=== PATIENT | female | born 1985 | race Caucasian/White ===

== ENCOUNTER 2017-08-08 15:50 | Outpatient (CLI) | payer MEDICAID ==
[2017-08-08 16:46] LABS: APPEARANCE,URINE CLEAR; BILIRUBIN,URINE NEGATIVE (NEGATIVE); GLUCOSE, URINE NEGATIVE (NEGATIVE); KETONES,URINE NEGATIVE (NEGATIVE); LEUKOCYTE ESTERASE,URINE NEGATIVE (NEGATIVE); NITRITE,URINE NEGATIVE (NEGATIVE); PROTEIN,URINE NEGATIVE (NEGATIVE); URINE SPECIFIC GRAVITY 1.019; UROBILINOGEN,URINE NEGATIVE mg/dL (<2.0)
--- NOTE | 2017-08-08 17:00 | Non Stress Test Report ---
Non Stress Test Datetime Report Generated by CPN: 08/08/2017 17:00 DEMOGRAPHIC EGA NST: 33.0 INDICATION Indication for Study: Ordered by Provider Indication for Study (NST) Other: uc's MONITORING Monitor Explained: Monitor Explained; Test Explained; Patient Verbalized Understanding Time on Monitor: 08/08/2017 16:12 Time off Monitor: 08/08/2017 16:50 NST Duration: 38 NST INTERVENTIONS NST Interventions: Other NST Interventions Other: popsicle Physician Notified NST: Dr Phipps BABY A: [id number] BABY A Movement : Present Contraction Frequency : irregular FHR Baseline : 140 Accelerations : 15X15 Decelerations : None Variability : Moderate 6-25bpm NST Review: Meets Criteria for Reactive NST NST Review and Verified By : Gianfranco Fonseca RN NST Results: Reactive NST REPORT Report Trigger: Send Report
[2017-08-08 17:12] LABS: URINE BARBITURATES SCREEN NEGATIVE; URINE METHADONE SCREEN NEGATIVE; URINE OPIATES LOW NEGATIVE; URINE PHENCYCLIDINE SCREEN NEGATIVE
== END 2017-08-08 16:57 | disposition home or self-care (01) ==
LOC: LC 15:50
PROVIDERS: ATTEND Obstetrics & Gynecology
DX: O47.03 False labor before 37 completed weeks of gestation, third trimester (principal); Z3A.33 33 weeks gestation of pregnancy
CPT/HCPCS: 59025; 80307; 81001

== ENCOUNTER 2017-09-18 23:31 | Outpatient (CLI) | payer MEDICAID ==
[2017-09-19 00:11] LABS: APPEARANCE,URINE CLOUDY; BILIRUBIN,URINE NEGATIVE (NEGATIVE); GLUCOSE, URINE NEGATIVE (NEGATIVE); KETONES,URINE NEGATIVE (NEGATIVE); LEUKOCYTE ESTERASE,URINE TRACE (NEGATIVE); NITRITE,URINE NEGATIVE (NEGATIVE); PROTEIN,URINE 30 mg/dL (NEGATIVE); URINE SPECIFIC GRAVITY 1.019
[2017-09-19 00:26] LABS: URINE BARBITURATES SCREEN NEGATIVE; URINE METHADONE SCREEN NEGATIVE; URINE OPIATES LOW NEGATIVE; URINE PHENCYCLIDINE SCREEN NEGATIVE
--- NOTE | 2017-09-23 13:42 | Non Stress Test Report ---
Non Stress Test Datetime Report Generated by CPN: 09/23/2017 13:42 DEMOGRAPHIC EGA NST: 39.0 INDICATION Indication for Study: Ordered by Provider URINE RESULTS Urine Protein, NST: Positive Urine Ketones - NST: Negative Urine Glucose - NST: Negative Urine Blood - NST: Negative MONITORING Monitor Explained: Monitor Explained; Test Explained; Patient Verbalized Understanding Time on Monitor: 09/19/2017 00:08 Time off Monitor: 09/19/2017 00:43 NST Duration: 35 NST INTERVENTIONS NST Interventions: PO Hydration; Reposition Patient Physician Notified NST: Dr. Sunshine BABY A: [id number] BABY A Movement : Present Contraction Frequency : Occasional FHR Baseline : 135 Accelerations : 15X15 Decelerations : None Variability : Moderate 6-25bpm NST Review: Meets Criteria for Reactive NST NST Review and Verified By : Mason Snider RN NST Results: Reactive NST REPORT Report Trigger: Send Report
== END 2017-09-19 01:37 | disposition home or self-care (01) ==
LOC: LC 23:31 → EDBD 23:31 → LC 09-19 01:37
PROVIDERS: ATTEND Student in an Organized Health Care Education/Training Program
PROC: 4A1HXCZ Monitoring of Products of Conception, Cardiac Rate, External Approach (ICD-10-PCS; principal; 2017-09-18)
DX: O47.1 False labor at or after 37 completed weeks of gestation (principal); Z3A.39 39 weeks gestation of pregnancy
CPT/HCPCS: 59025; 80307; 81005

== ENCOUNTER 2018-10-22 12:02 | Emergency (ER) | payer MEDICAID ==
[2018-10-22 12:08] VITALS: BP 129/77
[2018-10-22] MEDS ORDERED: NORMAL SALINE 1000 ML 1,000 ML IV ONE (12:19)
--- NOTE | 2018-10-22 12:19 | ER Document Report ---
ED Medical Screen (RME) - General Chief Complaint: OB Problem (<20wks) Stated Complaint: VAGINAL BLEEDING, ABDOMINAL PAIN Time Seen by Provider: 10/22/18 12:17 Notes: 33 years old female with G 10 P5, presents with vaginal bleeding since this morning. She is 12 weeks . TRAVEL OUTSIDE OF THE [place] IN LAST 30 DAYS: No - Related Data Allergies/Adverse Reactions: No Known Allergies Allergy (Verified 10/22/18 12:04) Past Medical History - Social History Chew tobacco use (# tins/day): No Frequency of alcohol use: None Drug Abuse: None Renal/ Medical History: Denies: Hx Peritoneal Dialysis - Immunizations History of Influenza Vaccine for 08/2017 - 01/2018 Season: No Physical Exam - Vital signs Vitals: Temp Pulse Resp BP Pulse Ox 98.8 F 120 H 16 129/77 H 96 10/22/18 12:06 10/22/18 12:06 10/22/18 12:06 10/22/18 12:06 10/22/18 12:06 Course - Vital Signs Vital signs: Temp Pulse Resp BP Pulse Ox 98.8 F 120 H 16 129/77 H 96 10/22/18 12:06 10/22/18 12:06 10/22/18 12:06 10/22/18 12:06 10/22/18 12:06 Doctor's Discharge - Discharge Referrals: CAITLIN GUTIERREZ MD [Primary Care Provider] - Follow up as needed
[2018-10-22 12:59] LABS: ABSOLUTE EOSINOPHILS # (AUTO) 0.1 10^3/uL (0.0-0.6); ABSOLUTE LYMPHOCYTES (AUTO) 2.1 10^3/uL (0.5-4.7); ABSOLUTE MONOCYTES (AUTO) 0.5 10^3/uL (0.1-1.4); BASOPHILS % (AUTO) 0.3 % (0-2); EOSINOPHILS % (AUTO) 1.3 % (0-6); HEMATOCRIT 38.8 % (36.0-47.0); HEMOGLOBIN 13.9 g/dL (12.0-15.5); LYMPHOCYTES % (AUTO) 21.9 % (13-45); MEAN CORPUSCULAR HEMOGLOBIN 31.4 pg (27.0-33.4); MEAN CORPUSCULAR HGB CONC 35.9 g/dL (32.0-36.0); MEAN CORPUSCULAR VOLUME 88 fl (80-97); MONOCYTES % (AUTO) 4.8 % (3-13); PLATELET COUNT 220 10^3/uL (150-450); RED BLOOD COUNT 4.43 10^6/uL (3.72-5.28); RED CELL DISTRIBUTION WIDTH 12.3 % (11.5-14.0); SEGMENTED NEUTROPHILS % (AUTO) 71.7 % (42-78); TOTAL CELLS COUNTED % (AUTO) 100 %; WHITE BLOOD COUNT 9.8 10^3/uL (4.0-10.5)
[2018-10-22 13:06] LABS: APPEARANCE,URINE CLOUDY; BILIRUBIN,URINE NEGATIVE (NEGATIVE); COLOR,URINE YELLOW; GLUCOSE, URINE NEGATIVE (NEGATIVE); KETONES,URINE NEGATIVE (NEGATIVE); LEUKOCYTE ESTERASE,URINE MODERATE (NEGATIVE); NITRITE,URINE NEGATIVE (NEGATIVE); PROTEIN,URINE NEGATIVE (NEGATIVE); URINE SPECIFIC GRAVITY 1.023; UROBILINOGEN,URINE NEGATIVE mg/dL (<2.0)
--- NOTE | 2018-10-22 14:13 | RADIOLOGY REPORT (SQ) ---
EXAM DESCRIPTION: U/S 1TRIMESTER/1GEST W/DOPPLER COMPLETED DATE/TIME: 10/22/2018 1:56 pm REASON FOR STUDY: and vaginal bleeding COMPARISON: None. TECHNIQUE: Transabdominal static and realtime grayscale images acquired of the pelvis. Additional se lected spectral and color Doppler images recorded. All images stored on PACs. bHCG: Not applicable. CLINICAL DATES: Unknown LIMITATIONS: None. FINDINGS: FETUS: Single Living intrauterine . ULTRASOUND EGA: 13 weeks 2 days ULTRASOUND MARIE: 04/27/2019 EFW: Not applicable less than 20 weeks. CRL: 7.2 cm FHR: 160 beats per minute. SURVEY: Too early to assess. AMNIOTIC FLUID: Adequate amount. PLACENTA: Not yet developed due to early gestation. SUBCHORIONIC BLEED: No SIZE OF BLEED: Not applicable. UTERUS: No masses or anomalies. 11.2 x 10.4 x 12.5 cm. CERVICAL LENGTH: 4.3 cm. Closed. RIGHT ADNEXA: Normal ovary with normal vascular flow. 2.8 x 2.1 x 1.4 cm. No adnexal free fluid. No adnexal masses. LEFT ADNEXA: Normal ovary with normal vascular flow. 2.5 x 2.9 x 1.3 cm. No adnexal free fluid. No adnexal masses. FREE FLUID: None. OTHER: No other significant finding. IMPRESSION: LIVING INTRAUTERINE . EGA 13 weeks 2 days Trimester of : Second. TECHNICAL DOCUMENTATION: JOB ID: [id number] [employer]- All Rights Reserved Reading location - IP/workstation name: [email or web address]
--- NOTE | 2018-10-22 14:45 | ER Document Report ---
ED GI/ - General Chief Complaint: OB Problem (<20wks) Stated Complaint: VAGINAL BLEEDING, ABDOMINAL PAIN Time Seen by Provider: 10/22/18 12:17 Mode of Arrival: Ambulatory Information source: Patient Notes: 33-year-old female presents to ED for complaint of vaginal cramping yesterday and vaginal bleeding this morning. She states she is about 14-15 weeks 10 para 5. She is alert and oriented rest she is regular nonlabored speaking in full sentences walking with a even steady gait. She states she has no other problems at this time just the vaginal bleeding and cramping. TRAVEL OUTSIDE OF THE [place] IN LAST 30 DAYS: No - HPI Patient complains to provider of: Pelvic pain, , Vaginal bleeding Onset: Yesterday Timing/Duration: Intermittent Quality of pain: Cramping Severity at maximum: Moderate Severity in ED: Moderate Pain Level: 2 Location: Pelvis Vaginal bleeding (Compared to normal period): Web Architect : 10 Para: 15 OB ultrasound done: Yes Associated symptoms: Other - Pain and vaginal bleeding Exacerbated by: Denies Relieved by: Denies Similar symptoms previously: No Recently seen / treated by doctor: Yes - Related Data Allergies/Adverse Reactions: No Known Allergies Allergy (Verified 10/22/18 12:04) Past Medical History - General Information source: Patient - Social History Smoking Status: Current Every Day Smoker Cigarette use (# per day): Yes Chew tobacco use (# tins/day): No Smoking Education Provided: Yes - 4 minutes Frequency of alcohol use: None Drug Abuse: None Lives with: Family Family History: Reviewed & Not Pertinent Patient has suicidal ideation: No Patient has homicidal ideation: No - Past Medical History Cardiac Medical History: Reports: None Pulmonary Medical History: Reports: None EENT Medical History: Reports: None Neurological Medical History: Reports: None Endocrine Medical History: Reports: None Renal/ Medical History: Reports: Hx Ectopic Malignancy Medical History: Reports: None GI Medical History: Reports: None Musculoskeletal Medical History: Reports None Skin Medical History: Reports None Psychiatric Medical History: Reports: None Traumatic Medical History: Reports: None Infectious Medical History: Reports: None Past Surgical History: Reports: Hx Gynecologic Surgery - Laparoscopic for ectopic pregnancies - Immunizations Immunizations up to date: Yes Review of Systems - Review of Systems Notes: REVIEW OF SYSTEMS: CONSTITUTIONAL : Denies fever, chills, or sweats. Denies recent illness. EENT: Denies eye, ear, throat, or mouth pain or symptoms. Denies nasal or sinus congestion or discharge. Denies throat, tongue, or mouth swelling or difficulty swallowing. CARDIOVASCULAR: Denies chest pain. Denies palpitations or racing or irregular heart beat. Denies ankle edema. RESPIRATORY: Denies cough, cold, or chest congestion. Denies shortness of breath, difficulty breathing, or wheezing. GASTROINTESTINAL: Denies abdominal pain or distention. Denies nausea, vomiting , or diarrhea. Denies blood in vomitus, stools, or per rectum. Denies black, tarry stools. Denies constipation. GENITOURINARY: Denies difficulty urinating, painful urination, burning, frequency, blood in urine, or discharge. FEMALE GENITOURINARY: Patient states she is about 14-15 weeks started cramping last night with vaginal bleeding. She states she is 10 para 5 but only 1 child living a home. She states her ex- has the rest of the children. MUSCULOSKELETAL: Denies back or neck pain or stiffness. Denies joint pain or swelling. SKIN: Denies rash, lesions or sores. HEMATOLOGIC : Denies easy bruising or bleeding. LYMPHATIC: Denies swollen, enlarged glands. NEUROLOGICAL: Denies confusion or altered mental status. Denies passing out or loss of consciousness. Denies dizziness or lightheadedness. Denies headache. Denies weakness or paralysis or loss of use of either side. Denies problems with gait or speech. Denies sensory loss, numbness, or tingling. Denies seizures. PHYSICAL EXAMINATION: GENERAL: Well-appearing, well-nourished and in no acute distress. HEAD: Atraumatic, normocephalic. EYES: Pupils equal round and reactive to light, extraocular movements intact, conjunctiva are normal. ENT: Nares patent, oropharynx clear without exudates. Moist mucous membranes. NECK: Normal range of motion, supple without lymphadenopathy LUNGS: Breath sounds clear to auscultation bilaterally and equal. No wheezes rales or rhonchi. HEART: Regular rate and rhythm without murmurs ABDOMEN: Soft, nontender, nondistended abdomen. No guarding, no rebound. No masses appreciated. Female : Very minimal vaginal bleeding. No cervical or adnexal tenderness. Patient does have a gravid uterus. Musculoskeletal: Normal range of motion, no pitting or edema. No cyanosis. NEUROLOGICAL: Cranial nerves grossly intact. Normal speech, normal gait. Normal sensory, motor exams PSYCH: Normal mood, normal affect. SKIN: Warm, Dry, normal turgor, no rashes or lesions noted. PSYCHIATRIC: Denies anxiety or stress. Denies depression, suicidal ideation, or homicidal ideation. ALL OTHER SYSTEMS REVIEWED AND NEGATIVE. Dictation was performed using [employer] voice recognition software Physical Exam - Vital signs Vitals: Temp Pulse Resp BP Pulse Ox 98.8 F 120 H 16 129/77 H 96 10/22/18 12:06 10/22/18 12:06 10/22/18 12:06 10/22/18 12:06 10/22/18 12:06 Course - Vital Signs Vital signs: Temp Pulse Resp BP Pulse Ox 98.8 F 120 H 16 129/77 H 96 10/22/18 12:06 10/22/18 12:06 10/22/18 12:06 10/22/18 12:06 10/22/18 12:06 - Laboratory Result Diagrams: 10/22/18 12:30 Laboratory results interpreted by me: 10/22/18 10/22/18 12:30 12:30 Beta HCG, Quant 929827.00 H Urine Blood MODERATE H Ur Leukocyte Esterase MODERATE H Discharge - Discharge Clinical Impression: Vaginal bleeding during Condition: Stable Disposition: HOME, SELF-CARE Additional Instructions: : You are . care is best started as early in as possible. If you're unsure about continuing this , you should discuss this with your physician or with [facility] at [facility]. You should take only medications approved by your physician. Acetaminophen can safely be taken for minor pains. As a rule, medication for chronic conditions such as asthma or seizures can safely be continued. You should discuss with the physician every medicine you take. Any regular exercise program can be continued. Talk to your physician, however, before engaging in competitive or demanding sports. Alcohol, smoking, and "street drugs" are dangerous to your baby. Cocaine is especially dangerous. Don't use any illicit drugs! BLEEDING DURING EARLY : You have been evaluated for passing blood while . While we take this symptom very seriously, most women with your degree of bleeding will go on to have a perfectly normal baby. At this time, there is no indication that a miscarriage will occur. (A miscarriage occurs when the fetus is abnormal. There is no medicine or treatment to prevent it.) A more serious cause of bleeding is tubal (or ectopic) . An ultrasound usually can show whether the is in the uterus or in the tube. Sometimes in early , no fetus is seen. In this case, careful follow-up, including repeat blood tests and repeat ultrasound, is necessary. Do not douche or have sex for at least a week, or until OK'd by the doctor. Don't use tampons. Call the doctor or return for re-examination if there is an increase in bleeding or cramping, extreme weakness, fainting, new abdominal pain, fever, or passage of tissue. FOLLOW-UP CARE: If you have been referred to a physician for follow-up care, call the physician s office for an appointment as you were instructed or within the next two days. If you experience worsening or a significant change in your symptoms (very heavy bleeding with large clots of blood, passage of tissue, more severe abdominal / pelvic pain or cramping, feeling faint or severe weakness, fever, etc.), notify the physician immediately or return to the Emergency Department at any time for re-evaluation. OBSTETRIC-GYNECOLOGIC (OB-RN MEDICAL SURGICAL) PHYSICIANS IN CENTRAL: [facility] [address] [place] [address] [phone] For active duty and dependents diagnosed with a threatened or miscarriage, you should follow up in the following manner: Standard patients who have a local civilian provider should follow up with that provider. Patients of the Family Practice Clinic should call your Team Nurse at 8: 00 am the following morning for further instructions. If you are neither a Standard patient nor a patient of the Family Practice Clinic, you should follow up at the [facility] ([facility]) . Patients already enrolled in the [facility] OB Clinic, Prime patients not assigned to the Family Practice Clinic, and Active Duty patients not assigned to Family Practice Clinic should report to the [facility] Lab at 8:00 am the next morning that the [facility] OB Clinic is open and then you will be seen in the OB Clinic at 11:00 am. Forms: Elevated Blood Pressure Referrals: CAITLIN GUTIERREZ MD [ACTIVE STAFF] - Follow up as needed
[2018-10-22] MEDS ORDERED: CEFTRIAXONE INJ 250 MG VIAL IM ONE (15:22)
[2018-10-22] MEDS ORDERED: LIDOCAINE 1% INJ-PF (10 MG/ML) 30 ML SDV INJ ONE (15:22)
[2018-10-22] MEDS ORDERED: AZITHROMYCIN 250 MG TABLET PO ONE (15:22)
[2018-10-22 15:23] LABS: BACTERIA (WET MOUNT) 4+ BACTERIA SEEN; EPITHELIALS (WET MOUNT) 3+ EPITHELIALS SEEN; T.VAGINALIS (WET MOUNT) NO TRICHOMONAS SEEN; WBCS (WET MOUNT) RARE WBCS SEEN; YEAST (WET MOUNT) NO YEAST SEEN
[2018-10-22 16:49] LABS: CHLAM PCR NOT DETECTED (NOT DETECT); GON PCR NOT DETECTED (NOT DETECT)
== END 2018-10-22 16:46 | disposition home or self-care (01) ==
LOC: ER 12:02
DX: O20.9 Hemorrhage in early pregnancy, unspecified (principal); O99.332 Smoking (tobacco) complicating pregnancy, second trimester; F17.210 Nicotine dependence, cigarettes, uncomplicated; Z3A.15 15 weeks gestation of pregnancy
CPT/HCPCS: 99406; 99284; 96372; 96360; 36415; 87210; 84702; 85025; 81001; 87491; 87591; 76801; 93976; Q0144; J3490; J7030; J0696

== ENCOUNTER 2019-04-21 06:33 | Outpatient (CLI) | payer MEDICAID ==
[2019-04-21 07:11] LABS: APPEARANCE,URINE CLOUDY; BILIRUBIN,URINE NEGATIVE (NEGATIVE); COLOR,URINE YELLOW; GLUCOSE, URINE NEGATIVE (NEGATIVE); KETONES,URINE NEGATIVE (NEGATIVE); LEUKOCYTE ESTERASE,URINE MODERATE (NEGATIVE); NITRITE,URINE NEGATIVE (NEGATIVE); PROTEIN,URINE NEGATIVE (NEGATIVE); URINE SPECIFIC GRAVITY 1.014; UROBILINOGEN,URINE NEGATIVE mg/dL (<2.0)
[2019-04-21 07:27] LABS: URINE AMPHETAMINES SCREEN NEGATIVE; URINE BARBITURATES SCREEN NEGATIVE; URINE BENZODIAZEPINES SCREEN NEGATIVE; URINE COCAINE SCREEN NEGATIVE; URINE MARIJUANA (THC) SCREEN NEGATIVE; URINE METHADONE SCREEN NEGATIVE; URINE PHENCYCLIDINE SCREEN NEGATIVE
--- NOTE | 2019-04-21 08:23 | Non Stress Test Report ---
Non Stress Test Datetime Report Generated by CPN: 04/21/2019 08:23 DEMOGRAPHIC EGA NST: 39.0 INDICATION Indication for Study: Ordered by Provider MONITORING Monitor Explained: Monitor Explained; Test Explained; Patient Verbalized Understanding Time on Monitor: 04/21/2019 07:00 Time off Monitor: 04/21/2019 07:48 NST Duration: 48 NST INTERVENTIONS NST Interventions: None Physician Notified NST: Dr. Bean BABY A: [id number] BABY A Movement : Present Contraction Frequency : irregular FHR Baseline : 130 Accelerations : 15X15 Decelerations : None Variability : Moderate 6-25bpm NST Review: Meets Criteria for Reactive NST NST Review and Verified By : Jessica Bellavance RN NST Results: Reactive NST REPORT Report Trigger: Send Report
== END 2019-04-21 08:28 | disposition home or self-care (01) ==
LOC: LC 06:33
PROVIDERS: ATTEND Obstetrics & Gynecology
PROC: 4A1HXCZ Monitoring of Products of Conception, Cardiac Rate, External Approach (ICD-10-PCS; principal; 2019-04-21)
DX: O47.1 False labor at or after 37 completed weeks of gestation (principal); Z3A.39 39 weeks gestation of pregnancy
CPT/HCPCS: 80307; 81005

== ENCOUNTER 2019-04-22 17:03 | Inpatient (IN) | payer MEDICAID ==
[2019-04-22 17:32] LABS: APPEARANCE,URINE CLOUDY; BILIRUBIN,URINE NEGATIVE (NEGATIVE); COLOR,URINE AMBER; GLUCOSE, URINE NEGATIVE (NEGATIVE); KETONES,URINE NEGATIVE (NEGATIVE); LEUKOCYTE ESTERASE,URINE LARGE (NEGATIVE); NITRITE,URINE NEGATIVE (NEGATIVE); PROTEIN,URINE 30 mg/dL (NEGATIVE); URINE SPECIFIC GRAVITY 1.015; UROBILINOGEN,URINE NEGATIVE mg/dL (<2.0)
[2019-04-22] MEDS ORDERED: RINGERS SOLUTION,LACTATED 1,000 ML IV ONE (17:36)
[2019-04-22] MEDS ORDERED: RINGERS SOLUTION,LACTATED 1,000 ML IV PRN (17:36)
[2019-04-22 17:48] LABS: URINE AMPHETAMINES SCREEN NEGATIVE; URINE BARBITURATES SCREEN NEGATIVE; URINE BENZODIAZEPINES SCREEN NEGATIVE; URINE COCAINE SCREEN NEGATIVE; URINE MARIJUANA (THC) SCREEN NEGATIVE; URINE METHADONE SCREEN NEGATIVE; URINE PHENCYCLIDINE SCREEN NEGATIVE
--- NOTE | 2019-04-22 18:13 | Admission Physical ---
Datetime Report Generated by CPN: 04/22/2019 18:12 CURRENT ADMISSION Chief Complaint: Uterine Contractions Indication for Induction: Not Applicable Admit Impression : Term, Intrauterine ; Active Labor; Intact Membranes Admit Plan: Admit to Unit; Initiate Labor Protocol ALLERGIES Medication Allergies: No Medication Allergies: No Known Allergies (10/22/2018) Latex: No Latex Allergies Food Allergies: none Environmental Allergies: none OBSTETRICAL HISTORY EDC: 04/28/2019 00:00 : 10 Para: 4 Term: 4 : 0 Ectopic: 2 Gestational Diabetes: No Rh Sensitization: No Incompetent Cervix: No MARIO: No Infertility: No ART Treatment: No Uterine Anomaly: No IUGR: No Hx Previous C/S: No Macrosomia: No Hx Loss/Stillborn: No PIH: No Hx : No Placenta Previa/Abruption: No Depression/PP Depression: No PTL/PROM: No Post Hemorrhage: No Current Procedures: Ultrasound Obstetrical History Comments: G1 G2 G3 G4 G5 G6 G7 G8 G9 G10- current SEE RECORDS Alcohol: No Marijuana : No Cocaine: No Other Illicit Drugs: No Cigarettes: Current Everyday Smoker. [id number] Cigarette Frequency: 5 - 10 per day Advised to Stop: Yes MEDICAL HISTORY Diabetes: No Blood Transfusion: No Pulmonary Disease (Asthma, TB): No Breast Disease: No Hypertension: No Cream Dipper Surgery: Yes Heart Disease: No Hosp/Surgery: Yes Autoimmune Disorder: No Anesthetic Complications: No Kidney Disease: No Abnormal Pap Smear: No Neuro/Epilepsy: No Psychiatric Disorders: No Other Medical Diseases: No Hepatitis/Liver Disease: No Significant Family History: No Varicosities/Phlebitis: No Trauma/Violence : No Thyroid Dysfunction: No Medical History Comments: 2 ectopic pregnancies, childbirth INFECTIOUS HISTORY Gonorrhea: No Genital Herpes: No Chlamydia: Yes Tuberculosis: No Syphilis: No Hepatitis: No HIV/AIDS Exposure: No Rash or Viral Illness: No HPV: No Infectious History Comments: chlamydia , PHYSICAL EXAM General: Normal HEENT: Normal Neurologic: Normal Thyroid: Normal Heart: Normal Lungs: Normal Breast: Normal Back: Normal Abdomen: Normal Genitourinary Exam: Normal Extremities: Normal DTRs: Normal Pelvic Type: Adequate Vital Signs: Reviewed; Within Normal Limits VAGINAL EXAM Dilatation: 5 Effacement: 75 Station: -1 MEMBRANES Membranes: Ruptured FETUS A EGA: 39.1 Monitoring: External US FHR- Baseline: 140s Variability: Moderate 6-25bpm Accelerations: 15X15 Decelerations: None FHR Category: Category I Admit Comment: Pt presented to L_D c/o contractions. Her cervical exam is 5/75%/-1 and vertex. She is GBS Neg. PLANS FOR LABOR AND DELIVERY Labor and Delivery: None Pain Management: Epidural Feeding Preference: Formula Benefit of Breast Feed Discussed: Yes Circumcision: Yes INFORMED CONSENT Signature: with User ID: [email or web address]
[2019-04-22 18:58] LABS: ABSOLUTE BASOPHILS # (AUTO) 0.1 10^3/uL (0.0-0.2); ABSOLUTE EOSINOPHILS # (AUTO) 0.1 10^3/uL (0.0-0.6); ABSOLUTE LYMPHOCYTES (AUTO) 2.3 10^3/uL (0.5-4.7); ABSOLUTE MONOCYTES (AUTO) 0.6 10^3/uL (0.1-1.4); ABSOLUTE NEUT (AUTO) 8.6 10^3/uL (1.7-8.2); BASOPHILS % (AUTO) 0.7 % (0-2); EOSINOPHILS % (AUTO) 0.5 % (0-6); HEMATOCRIT 31.1 % (36.0-47.0); MEAN CORPUSCULAR HEMOGLOBIN 26.8 pg (27.0-33.4); MEAN CORPUSCULAR HGB CONC 32.2 g/dL (32.0-36.0); MEAN CORPUSCULAR VOLUME 83 fl (80-97); MONOCYTES % (AUTO) 5.2 % (3-13); PLATELET COUNT 273 10^3/uL (150-450); RED BLOOD COUNT 3.75 10^6/uL (3.72-5.28); SEGMENTED NEUTROPHILS % (AUTO) 73.6 % (42-78); TOTAL CELLS COUNTED % (AUTO) 100 %; WHITE BLOOD COUNT 11.7 10^3/uL (4.0-10.5)
[2019-04-22] MEDS ORDERED: EPHEDRINE SULFATE INJ 50 MG/1 ML AMPULE ONE (19:06)
[2019-04-22] MEDS ORDERED: MISOPROSTOL 0.2 MG TABLET ONE (19:06)
[2019-04-22] MEDS ORDERED: FENTANYL CITRATE INJ/PF 100 MCG/2 ML AMPUL ONE (19:06)
[2019-04-22] MEDS ORDERED: FENTANYL/BUPIVACAINE/NS/PF 300 MCG/150 ML RTUINJ EPI ONE (19:06)
[2019-04-22] MEDS ORDERED: PHENYLEPHRINE HCL INJ/PF 10 MG/1 ML SDV ONE (19:06)
[2019-04-22] MEDS ORDERED: OXYTOCIN/NORMAL SALINE 0 UNIT/0 ML RTUINJ ONE (19:07)
[2019-04-22] MEDS ORDERED: LIDOCAINE 1.5%/EPINEPHRINE INJ 5 ML AMP ONE (19:07)
[2019-04-22] MEDS ORDERED: BUPIVACAINE HCL 0.25 % INJ/PF (2.5 MG/1 ML) 30 ML VIAL ONE (19:07)
[2019-04-22] MEDS ORDERED: LIDOCAINE 1% INJ-PF (10 MG/ML) 30 ML SDV ONE (19:07)
[2019-04-22] MEDS ORDERED: OXYTOCIN 10 UNIT/ML VIAL ONE (19:31)
[2019-04-22] MEDS ORDERED: METHYLERGONOVINE MALEATE INJ/PF 0.2 MG/1 ML AMPULE ONE (19:31)
[2019-04-22] MEDS ORDERED: OXYTOCIN/NORMAL SALINE 20 UNIT/1,000 ML RTUINJ ONE (22:13)
[2019-04-22] MEDS ORDERED: MAG HYDROX/AL HYDROX/SIMETH SUSP 30 ML UDCUP ONE (22:22)
[2019-04-22] MEDS ORDERED: MAG HYDROX/AL HYDROX/SIMETH SUSP 30 ML UDCUP PO ONE (22:30)
[2019-04-22] MEDS ORDERED: DIPH/PERTUSS(ACELL)/TETANUS VAC/PF 0.5 ML SYR (>=10YO) IM PRN (23:33)
[2019-04-22] MEDS ORDERED: OXYTOCIN/NORMAL SALINE 20 UNIT/1,000 ML RTUINJ IV PRN (23:33)
[2019-04-22] MEDS ORDERED: ZOLPIDEM TARTRATE 5 MG TABLET PO PRN (23:33)
[2019-04-22] MEDS ORDERED: ACETAMINOPHEN WITH CODEINE #3 TABLET PO PRN (23:33)
[2019-04-22] MEDS ORDERED: BENZOCAINE/MENTHOL AEROSOL SPRAY 56 ML TOP PRN (23:33)
[2019-04-22] MEDS ORDERED: DIBUCAINE 1% OINTMENT 56 GM TP PRN (23:33)
[2019-04-23] MEDS ORDERED: ONDANSETRON 4 MG TAB.RAPDIS ONE (00:52)
[2019-04-23] MEDS: ACETAMINOPHEN WITH CODEINE #3 TABLET PO PRN ×2 (04:11→10:28)
[2019-04-23] MEDS: IBUPROFEN 800 MG TABLET PO SCH ×3 (06:09→22:03)
[2019-04-23 07:04] LABS: HEMATOCRIT 31.7 % (36.0-47.0); HEMOGLOBIN 10.5 g/dL (12.0-15.5); MEAN CORPUSCULAR HEMOGLOBIN 27.1 pg (27.0-33.4); MEAN CORPUSCULAR HGB CONC 33.1 g/dL (32.0-36.0); MEAN CORPUSCULAR VOLUME 82 fl (80-97); PLATELET COUNT 278 10^3/uL (150-450); RED BLOOD COUNT 3.86 10^6/uL (3.72-5.28); RED CELL DISTRIBUTION WIDTH 15.1 % (11.5-14.0); WHITE BLOOD COUNT 16.6 10^3/uL (4.0-10.5)
--- NOTE | 2019-04-23 09:34 | PDOC PROGRESS REPORT ---
Subjective-OB Progress Note for:: 04/23/19 Subjective: OOB to shower and halls, no c/o, hsb at BS Physical Exam (OB) Vital Signs: Temp Pulse Resp BP Pulse Ox 98.1 F 75 18 115/74 98 04/23/19 08:02 04/23/19 08:02 04/23/19 08:02 04/23/19 08:02 04/23/19 08:02 Intake & Output 04/22/19 04/23/19 04/24/19 06:59 06:59 06:59 Weight 81.4 kg - Lochia Lochia Amount: Small 10-25 ml Lochia Color: Rubra/Red - Abdomen Description: Soft, Round Hernia Present: No Fundal Description: Firm, Midline Fundal Height: u/u - u/2 Objective-Diagnostic Laboratory: 04/23/19 06:35 04/22/19 04/22/19 04/22/19 17:13 18:16 18:16 WBC 11.7 H RBC 3.75 Hgb 10.0 L Hct 31.1 L MCV 83 MCH 26.8 L MCHC 32.2 RDW 15.0 H Plt Count 273 Seg Neutrophils % 73.6 Lymphocytes % 20.0 Monocytes % 5.2 Eosinophils % 0.5 Basophils % 0.7 Absolute Neutrophils 8.6 H Absolute Lymphocytes 2.3 Absolute Monocytes 0.6 Absolute Eosinophils 0.1 Absolute Basophils 0.1 Urine Color JAMAR Urine Appearance CLOUDY Urine pH 7.0 Ur Specific Caro 1.015 Urine Protein 30 H Urine Glucose (UA) NEGATIVE Urine Ketones NEGATIVE Urine Blood LARGE H Urine Nitrite NEGATIVE Ur Leukocyte Esterase LARGE H Blood Type Cancelled Antibody Screen Cancelled 04/22/19 04/23/19 22:23 06:35 WBC 16.6 H RBC 3.86 Hgb 10.5 L Hct 31.7 L MCV 82 MCH 27.1 MCHC 33.1 RDW 15.1 H Plt Count 278 Seg Neutrophils % Lymphocytes % Monocytes % Eosinophils % Basophils % Absolute Neutrophils Absolute Lymphocytes Absolute Monocytes Absolute Eosinophils Absolute Basophils Urine Color Urine Appearance Urine pH Ur Specific Caro Urine Protein Urine Glucose (UA) Urine Ketones Urine Blood Urine Nitrite Ur Leukocyte Esterase Blood Type O POSITIVE Antibody Screen NEGATIVE Assessment and Plan(PN) - Assessment and Plan (1) hemorrhage of vagina Is this a current diagnosis for this admission?: Yes (2) Gestational diabetes mellitus Qualifiers: Gestational diabetes mellitus control: diet-controlled Is this a current diagnosis for this admission?: Yes (3) Normal vaginal delivery Is this a current diagnosis for this admission?: Yes - Time Spent with Patient Time with patient: Less than 15 minutes Smoking Education Provided: Over 3 minutes Medications reviewed and adjusted accordingly: Yes - Disposition Anticipated Discharge: Home Within: within 24 hours
[2019-04-23] MEDS ORDERED: PRENATAL VITAMIN W DHA CAPSULE PO SCH (10:00)
[2019-04-23] MEDS: SENNOSIDES/DOCUSATE 8.6-50 MG 1 EACH TABLET PO SCH (10:28)
[2019-04-23] MEDS: DOCUSATE SODIUM 100 MG CAPSULE PO SCH ×2 (10:29→18:59)
[2019-04-23] MEDS: FERROUS SULFATE 325 MG TABLET PO SCH ×2 (10:29→18:59)
[2019-04-24] MEDS: IBUPROFEN 800 MG TABLET PO SCH ×2 (06:32→13:50)
[2019-04-24 08:39] VITALS: BP 118/82
[2019-04-24] MEDS: SENNOSIDES/DOCUSATE 8.6-50 MG 1 EACH TABLET PO SCH (09:26)
[2019-04-24] MEDS: DOCUSATE SODIUM 100 MG CAPSULE PO SCH (09:26)
[2019-04-24] MEDS: FERROUS SULFATE 325 MG TABLET PO SCH (09:26)
--- NOTE | 2019-04-24 10:12 | PDOC PROGRESS REPORT ---
Subjective-OB Progress Note for:: 04/24/19 Subjective: bottle feeding, in bed, fob in room, wants circumcision, ready to go home Physical Exam (OB) Vital Signs: Temp Pulse Resp BP Pulse Ox 97.9 F 80 18 118/82 100 04/24/19 08:28 04/24/19 08:28 04/24/19 08:28 04/24/19 08:28 04/24/19 08:28 Intake & Output 04/23/19 04/24/19 04/25/19 06:59 06:59 06:59 Weight 81.4 kg - PIH/Pre-Eclampsia DTR's: 2 + Clonus: Negative Headache: Absent Epigastric Pain: No Visual Changes: No - Lochia Lochia Amount: Scant < 10 ml Lochia Color: Rubra/Red - Abdomen Description: Soft, Round Hernia Present: No Fundal Description: Firm, Midline Fundal Height: u/u - u/2 Objective-Diagnostic Laboratory: 04/23/19 06:35 Assessment and Plan(PN) - Assessment and Plan (1) hemorrhage of vagina Is this a current diagnosis for this admission?: Yes (2) Gestational diabetes mellitus Qualifiers: Gestational diabetes mellitus control: diet-controlled Is this a current diagnosis for this admission?: Yes (3) Normal vaginal delivery Is this a current diagnosis for this admission?: Yes - Time Spent with Patient Smoking Education Provided: Over 3 minutes Medications reviewed and adjusted accordingly: Yes - Disposition Anticipated Discharge: Home Within: within 24 hours
--- NOTE | 2019-04-24 10:18 | PDOC DISCHARGE SUMMARY ---
Final Diagnosis Discharge Date: 04/24/19 - Final Diagnosis (1) hemorrhage of vagina Is this a current diagnosis for this admission?: Yes (2) Gestational diabetes mellitus Is this a current diagnosis for this admission?: Yes (3) Normal vaginal delivery Is this a current diagnosis for this admission?: Yes Discharge Data - Discharge Medication Home Medications: No Home Medications 10/22/18 Gestational Age: 39.1 Reason(s) for Admission: Onset of Labor Procedures: Ultrasound Intrapartum Procedure(s): Spontaneous Vaginal Delivery Intrapartum Procedure Note: multiple variables, limited PNC - Data Baby 1 Male at 1 minute: 9 at 5 minutes: 9 Home with Mother: Yes Complications: No - Diagnosis Test Laboratory: Temp Pulse Resp BP Pulse Ox 97.9 F 80 18 118/82 100 04/24/19 08:28 04/24/19 08:28 04/24/19 08:28 04/24/19 08:28 04/24/19 08:28 04/22/19 04/22/19 04/23/19 17:13 18:16 06:35 RBC 3.75 3.86 Hgb 10.0 L 10.5 L Hct 31.1 L 31.7 L Urine Opiates Screen NEGATIVE - Discharge information/Instructions Discharge Activity: Activity As Tolerated, No Lifting Over 10 Pounds, No Lifting/Push/Pulling, Pelvic Rest Discharge Diet: As Tolerated, Regular Disposition: HOME, SELF-CARE Follow up with: [facility] in: 4, Weeks
--- NOTE | 2019-04-28 08:44 | Delivery Summary ---
Del Sum A-C Datetime Report Generated by CPN: 04/28/2019 08:44 DELIVERY PERSONNEL DELIVERY PERSONNEL: [id number] Delivery Doctor:: Amber Headley MD Labor and Delivery Nurse:: Alisson Gr RN Drying Tunnel Operator/PARTS SALES ADVISOR: Lillianamelissa Staley, ST MATERNAL INFORMATION Delivery Anesthesia: Epidural Medications After Delivery: Pitocin Drip 20 Units/1000ml NSS; Methergine 0.2mg IM; Cytotec 1000mcg Per Rectum/Vagina Medications After Delivery: Pitocin Drip 20 Units/1000ml NSS; Methergine 0.2mg IM; Cytotec 1000mcg Per Rectum/Vagina Estimated Blood Loss (ml): 100 ml Maternal Complications: None Provider Comments: of a viable male @ [phone] with an OP presentation; APGARS 8, 9; no lacs; Methergine and Cytotec given to prevent PPH (past hx of PPH) and grand multip LABOR SUMMARY EDC: 04/28/2019 00:00 No. Babies in Womb: 1 Attempted: No Labor Anesthesia: Epidural LABOR INFORMATION Reason for Induction: Not Applicable Onset of Labor: 04/22/2019 17:30 Oxytocin: Augmentation Group B Beta Strep: Negative Steroids Given: None Reason Steroids Not Administered: Not Applicable MEMBRANES Membranes Rupture Method: Artificial Rupture of Membranes: 04/22/2019 20:32 Length of Rupture (hr): 2.77 Amniotic Fluid Color: Clear Amniotic Fluid Amount: Small Amniotic Fluid Odor: Normal VAGINAL DELIVERY Episiotomy: None Laceration #1: None Laceration Extension #1: N/A Laceration Repair: Not Applicable Sponge Count Correct: Yes Sharps Count Correct: Yes CSECTION DELIVERY Primary Indication: N/A Secondary Indication: N/A CSection Incidence: N/A Labor: N/A Elective: N/A CSection Incision: N/A BABY A INFORMATION Infant Delivery Date/Time: 04/22/2019 23:18 Method of Delivery: Vaginal Method of Delivery: Vaginal Born in Route : No : N/A Forceps: N/A Vacuum Extraction: N/A Shoulder Dystocia : No PRESENTATION/POSITION BABY A Presentation: Cephalic Cephalic Presentation: Vertex Vertex Position: direct op Breech Presentation: N/A PLACENTA INFORMATION BABY A Placenta Method of Delivery: Spontaneous Placenta Method of Delivery: Spontaneous Placenta Status: Delivered SCORES BABY A Heart Rate 1 min: >100 bpm Resp Effort 1 min: Good Cry Reflex Irritability 1 min: Cough or Sneeze or Pulls Away Muscle Tone 1 min: Active Motion Color 1 min: Body [place], Extremities Blue Resuscitation Effort 1 min: Tactile Stimulation SCORE 1 MIN: 9 Heart Rate 5 min: >100 bpm Resp Effort 5 min: Good Cry Reflex Irritability 5 min: Cough or Sneeze or Pulls Away Muscle Tone 5 min: Active Motion Color 5 min: Body [place], Extremities Blue Resuscitation Effort 5 min: Tactile Stimulation SCORE 5 MIN: 9 INFANT INFORMATION BABY A Gestational Age at Delivery: 39.1 Gestational Status: Full Term- 39- 40.6 Weeks Outcome : Liveborn Condition : Stable Sex: Male Infant Sex: Male IDENTIFICATION BABY A Verification Date/Time: 04/22/2019 23:32 ID Band Number: [id number] Mother's Name Verified: Yes RN Verifying Infant: DAWSON Gr and RN Yjaaira CORD INFORMATION BABY A No. Cord Vessels: 3 Nuchal Cord : N/A Cord Blood Taken: Yes-For Eval (Mom's Blood Type - or O+) Suction: None ASSESSMENT BABY A Infant Complications: Multiple Variable Decels Physical Findings at Delivery: Within Normal Limits Infant Respirations: Appears Normal Skin to Skin: Yes Public Health Aides Teacher/ALS Called : No Infant Care By: DAWSON Gr Transferred To: Remains with Mother BABY B INFORMATION : N/A SIGNATURES Signature: with User ID: [email or web address]
== END 2019-04-24 14:45 | disposition home or self-care (01) | DRG 807 ==
LOC: LC 17:03 → LR 17:47 → 2S 04-23 01:32
PROVIDERS: ADMIT Obstetrics & Gynecology; ATTEND Obstetrics & Gynecology
PROC: 10E0XZZ Delivery of Products of Conception, External Approach (ICD-10-PCS; principal; 2019-04-22)
DX: O24.420 Gestational diabetes mellitus in childbirth, diet controlled (principal); Z37.0 Single live birth; O76 Abnormality in fetal heart rate and rhythm complicating labor and delivery; O99.334 Smoking (tobacco) complicating childbirth; F17.210 Nicotine dependence, cigarettes, uncomplicated; Z3A.39 39 weeks gestation of pregnancy
CPT/HCPCS: 36415; 59025; 80307; 81005; 85025; 85027; 86592; 86850; 86900; 86901; J2210; J2370; J2590; J3010; J3490; S0119

== ENCOUNTER 2020-11-24 12:48 | Outpatient (CLI) | payer MEDICAID ==
[2020-11-24] MEDS ORDERED: MAG HYDROX/AL HYDROX/SIMETH SUSP 30 ML UDCUP PO ONE (13:38)
[2020-11-24] MEDS ORDERED: MAG HYDROX/AL HYDROX/SIMETH SUSP 30 ML UDCUP ONE (13:43)
[2020-11-24 13:50] LABS: APPEARANCE,URINE SLIGHTLY-CLOUDY; BILIRUBIN,URINE NEGATIVE (NEGATIVE); COLOR,URINE YELLOW; GLUCOSE, URINE NEGATIVE (NEGATIVE); KETONES,URINE NEGATIVE (NEGATIVE); LEUKOCYTE ESTERASE,URINE SMALL (NEGATIVE); NITRITE,URINE NEGATIVE (NEGATIVE); PROTEIN,URINE 30 mg/dL (NEGATIVE); URINE SPECIFIC GRAVITY 1.025
[2020-11-24 13:50] LABS: BACTERIA (WET MOUNT) 4+ BACTERIA SEEN; EPITHELIALS (WET MOUNT) 3+ EPITHELIALS SEEN; RBCS (WET MOUNT) NO RBCS SEEN; T.VAGINALIS (WET MOUNT) NO TRICHOMONAS SEEN; WBCS (WET MOUNT) 2+ WBCS SEEN; YEAST (WET MOUNT) NO YEAST SEEN
[2020-11-24 14:09] LABS: URINE AMPHETAMINES SCREEN NEGATIVE; URINE BARBITURATES SCREEN NEGATIVE; URINE BENZODIAZEPINES SCREEN NEGATIVE; URINE COCAINE SCREEN NEGATIVE; URINE MARIJUANA (THC) SCREEN NEGATIVE; URINE METHADONE SCREEN NEGATIVE; URINE PHENCYCLIDINE SCREEN NEGATIVE
--- NOTE | 2020-11-24 14:29 | RADIOLOGY REPORT (SQ) ---
EXAM DESCRIPTION: U/S OB LIMITED IMAGES COMPLETED DATE/TIME: 11/24/2020 2:10 pm REASON FOR STUDY: EFW, WARREN 39.4 limited PNC COMPARISON: None. TECHNIQUE: Limited transvaginal grayscale ultrasound for evaluation of specific requested obstetrica l parameters. LIMITATIONS: None. FINDINGS: CERVICAL LENGTH: Not visualized. WARREN: 10.0 cm. FHR: 157 beats per minute. PRESENTATION: Cephalic. PLACENTA: Posterior ANATOMY: Not assessed OTHER: Estimated gestational age 37 weeks 3 days. Estimated weight 3261g. 52nd percentile. IMPRESSION: LIMITED OBSTETRICAL ULTRASOUND WITH MEASURED PARAMETERS DELINEATED ABOVE. Trimester of : Third trimester - 28 weeks to delivery. TECHNICAL DOCUMENTATION: JOB ID: [id number] 2010 [employer]- All Rights Reserved Reading location - IP/workstation name: [email or web address]
--- NOTE | 2020-11-24 14:57 | L&D Progress Notes ---
PROGRESS NOTES Datetime Report Generated by CPN: 11/24/2020 14:57 PROGRESS NOTE Comment: She presents concerned with labor. She is not in active labor at this time. The estimated weight is 7 lbs. I recomeded that she followup in the office this week if she doesn't go into labor. LAST VAGINAL EXAM-NURSING Nursing Exam Dilitation: 2.5 Nursing Exam Effacement: 50 Nursing Exam Station: -3 SIGNATURE SIGNATURE: 10,[id number] Signature: with User ID: [email or web address]
[2020-11-24 16:11] LABS: CHLAM PCR NOT DETECTED (NOT DETECT)
--- NOTE | 2020-11-24 18:20 | Non Stress Test Report ---
Non Stress Test Datetime Report Generated by CPN: 11/24/2020 18:19 DEMOGRAPHIC EGA NST: 39.4 INDICATION Indication for Study (NST) Other: LC- ctxs MONITORING Monitor Explained: Monitor Explained; Test Explained; Patient Verbalized Understanding Time on Monitor: 11/24/2020 14:42 Time off Monitor: 11/24/2020 15:10 NST Duration: 28 NST INTERVENTIONS NST Interventions: PO Hydration Physician Notified NST: Dr Dumas BABY A: [id number] BABY A Movement : Present Contraction Frequency : 2-6 FHR Baseline : 150 Accelerations : 15X15 Decelerations : None Variability : Moderate 6-25bpm NST Review: Meets Criteria for Reactive NST NST Review and Verified By : Tadeo Burns RN NST Results: Reactive NST COMMENTS NST Comments: MD on unit NST REPORT Report Trigger: Send Report
== END 2020-11-24 18:14 | disposition home or self-care (01) ==
LOC: LC 12:48
PROVIDERS: ATTEND Obstetrics & Gynecology
DX: O47.1 False labor at or after 37 completed weeks of gestation (principal); O24.410 Gestational diabetes mellitus in pregnancy, diet controlled; O09.33 Supervision of pregnancy with insufficient antenatal care, third trimester; Z3A.39 39 weeks gestation of pregnancy; Z87.891 Personal history of nicotine dependence
CPT/HCPCS: 59025; 87210; 81005; 87081; 80307; 87491; 87591; 76815; J3490

== ENCOUNTER 2020-11-26 08:45 | Inpatient (IN) | payer MEDICAID ==
[2020-11-26] MEDS ORDERED: RINGERS SOLUTION,LACTATED 1,000 ML IV PRN ×2 (09:30→10:22)
[2020-11-26 09:34] LABS: APPEARANCE,URINE TURBID; BILIRUBIN,URINE NEGATIVE (NEGATIVE); COLOR,URINE AMBER; GLUCOSE, URINE NEGATIVE (NEGATIVE); KETONES,URINE NEGATIVE (NEGATIVE); LEUKOCYTE ESTERASE,URINE LARGE (NEGATIVE); NITRITE,URINE NEGATIVE (NEGATIVE); PROTEIN,URINE 100 mg/dL (NEGATIVE); URINE SPECIFIC GRAVITY 1.019; UROBILINOGEN,URINE NEGATIVE mg/dL (<2.0)
[2020-11-26] MEDS ORDERED: MAG HYDROX/AL HYDROX/SIMETH SUSP 30 ML UDCUP PO ONE (09:57)
[2020-11-26] MEDS ORDERED: MAG HYDROX/AL HYDROX/SIMETH SUSP 30 ML UDCUP ONE (09:58)
[2020-11-26 10:02] LABS: URINE AMPHETAMINES SCREEN NEGATIVE; URINE BARBITURATES SCREEN NEGATIVE; URINE BENZODIAZEPINES SCREEN NEGATIVE; URINE COCAINE SCREEN NEGATIVE; URINE MARIJUANA (THC) SCREEN NEGATIVE; URINE METHADONE SCREEN NEGATIVE; URINE PHENCYCLIDINE SCREEN NEGATIVE
--- NOTE | 2020-11-26 12:36 | Admission Physical ---
Datetime Report Generated by CPN: 11/26/2020 12:36 CURRENT ADMISSION Chief Complaint: Uterine Contractions; Suspected Ruptured Membranes Chief Complaint Other: actim prom Negative Indication for Induction: Indicated by Testing Indication for Induction- Other: tachycardia Admit Impression : Term, Intrauterine ; No Active Labor Admit Plan: Admit to Unit ALLERGIES Medication Allergies: No Medication Allergies: No Known Allergies (11/26/2020) Latex: No Latex Allergies OBSTETRICAL HISTORY EDC: 11/27/2020 00:00 : 11 Para: 6 Term: 6 : 0 SAB: 1 IAB: 1 Ectopic: 2 (Annotations: Data stored by CPN on behalf of user) Livin Cesareans: 0 VBACs: 0 Multiple Births: 0 Gestational Diabetes: Yes Rh Sensitization: No Incompetent Cervix: No MARIO: No Infertility: No ART Treatment: No Uterine Anomaly: No IUGR: No Hx Previous C/S: No Macrosomia: Yes Hx Loss/Stillborn: No PIH: No Hx : No Placenta Previa/Abruption: No Depression/PP Depression: Yes PTL/PROM: No Post Hemorrhage: Yes (Annotations: Data stored by CPN on behalf of user) Current Procedures: Ultrasound; NST Obstetrical History Comments: G1- 2004 G2- 2005 EAB G3- 10/2006 ectopic R tube partially removed G4- 2006 SAB - 2007 G6- 06/2009 ectopic G7- 2009 G- 11/26/2011 G9- NVSD borderline GDM - 09/23/2017 G1- 04/22/2019 SEE RECORDS Alcohol: No Marijuana : No Cocaine: No Other Illicit Drugs: No Cigarettes: Former Smoker. [id number] MEDICAL HISTORY Diabetes: Yes Diabetes Type: Gestational Diabetes Blood Transfusion: No Pulmonary Disease (Asthma, TB): No Breast Disease: No Hypertension: No Recovery Specialist Surgery: No Heart Disease: No Hosp/Surgery: Yes Autoimmune Disorder: No Anesthetic Complications: No Kidney Disease: No Abnormal Pap Smear: No Neuro/Epilepsy: No Psychiatric Disorders: No Other Medical Diseases: No Hepatitis/Liver Disease: No Significant Family History: No Varicosities/Phlebitis: No Trauma/Violence : No Thyroid Dysfunction: No Medical History Comments: GDM 2017, anemia, depression, childbirth, part of right tube removed 2006 after ectopic, remainder of the tube removed 2008 after another ectopic INFECTIOUS HISTORY Gonorrhea: No Genital Herpes: No Chlamydia: Yes Tuberculosis: No Syphilis: No Hepatitis: No HIV/AIDS Exposure: No Rash or Viral Illness: No HPV: Yes Infectious History Comments: hx Gonorrhea and chlamydia, HPV/condyloma PHYSICAL EXAM General: Normal HEENT: Deferred Neurologic: Normal Thyroid: Deferred Heart: Normal Lungs: Normal Breast: Deferred Back: Deferred Abdomen: Normal Genitourinary Exam: Normal Extremities: Normal DTRs: Deferred Pelvic Type: Adequate Physical Exam Comments: cervix per RN Vital Signs: Reviewed VAGINAL EXAM Dilatation: 5 Effacement: 50 FETUS A EGA: 39.6 Monitoring: External US FHR- Baseline: 165 Variability: Moderate 6-25bpm Accelerations: 15X15 Decelerations: None FHR Comments: tachycardia Presentation: Vertex Admit Comment: , hx of PPH Plan to AROM, pitocin as needed anticipate establish 2nd IV line Dr. Nugent aware of admission and agrees to plan PLANS FOR LABOR AND DELIVERY Labor and Delivery: None Pain Management: Epidural Feeding Preference: Both Benefit of Breast Feed Discussed: Yes Circumcision: N/A INFORMED CONSENT Assignment: Kimberly Nugent MD Signature: with User ID: [email or web address] : with User ID: [email or web address]
[2020-11-26] MEDS ORDERED: FAMOTIDINE 20 MG TABLET ONE (13:09)
[2020-11-26] MEDS ORDERED: FAMOTIDINE INJ/PF 20 MG/2 ML SDV IV ONE (13:11)
[2020-11-26 13:16] LABS: ABSOLUTE BASOPHILS # (AUTO) 0.1 10^3/uL (0.0-0.2); ABSOLUTE EOSINOPHILS # (AUTO) 0.1 10^3/uL (0.0-0.6); ABSOLUTE LYMPHOCYTES (AUTO) 3.3 10^3/uL (0.5-4.7); ABSOLUTE MONOCYTES (AUTO) 0.7 10^3/uL (0.1-1.4); ABSOLUTE NEUT (AUTO) 7.8 10^3/uL (1.7-8.2); BASOPHILS % (AUTO) 0.5 % (0-2); EOSINOPHILS % (AUTO) 0.8 % (0-6); HEMATOCRIT 29.6 % (36.0-47.0); HEMOGLOBIN 9.7 g/dL (12.0-15.5); LYMPHOCYTES % (AUTO) 27.8 % (13-45); MEAN CORPUSCULAR HEMOGLOBIN 25.7 pg (27.0-33.4); MEAN CORPUSCULAR HGB CONC 32.9 g/dL (32.0-36.0); MEAN CORPUSCULAR VOLUME 78 fl (80-97); MONOCYTES % (AUTO) 5.8 % (3-13); PLATELET COUNT 307 10^3/uL (150-450); RED BLOOD COUNT 3.78 10^6/uL (3.72-5.28); RED CELL DISTRIBUTION WIDTH 16.2 % (11.5-14.0); SEGMENTED NEUTROPHILS % (AUTO) 65.1 % (42-78); TOTAL CELLS COUNTED % (AUTO) 100 %
[2020-11-26] MEDS ORDERED: LIDOCAINE 1% INJ-PF (10 MG/ML) 30 ML SDV ONE (13:35)
[2020-11-26] MEDS ORDERED: OXYTOCIN/0.9 % SODIUM CHLORIDE 30 UNIT/500 ML RTUINJ ONE (13:35)
[2020-11-26] MEDS ORDERED: MISOPROSTOL 0.2 MG TABLET ONE (13:35)
[2020-11-26] MEDS ORDERED: OXYTOCIN 10 UNIT/ML VIAL ONE (13:35)
[2020-11-26] MEDS ORDERED: EPHEDRINE SULFATE INJ 50 MG/1 ML AMPULE ONE (13:43)
[2020-11-26] MEDS ORDERED: FENTANYL/BUPIVACAINE/NS/PF 300 MCG/150 ML RTUINJ EPI ONE (13:43)
[2020-11-26] MEDS ORDERED: ROPIVACAINE HCL 0.2% INJ/PF (2 MG/ML) 20 ML SDV ONE (13:43)
[2020-11-26] MEDS ORDERED: OXYTOCIN/0.9 % SODIUM CHLORIDE 30 UNIT/500 ML RTUINJ IV PRN ×2 (16:00→17:19)
[2020-11-26] MEDS ORDERED: ACETAMINOPHEN 325 MG TABLET PO PRN (17:19)
[2020-11-26] MEDS ORDERED: FAMOTIDINE 20 MG TABLET PO PRN (17:19)
[2020-11-26] MEDS ORDERED: PSEUDOEPHEDRINE HCL 30 MG TABLET PO PRN (17:19)
[2020-11-26] MEDS ORDERED: DIBUCAINE 1% OINTMENT 28 GM TP PRN (17:19)
[2020-11-26] MEDS ORDERED: BENZOCAINE/MENTHOL AEROSOL SPRAY 56 ML TOP PRN (17:19)
[2020-11-26] MEDS ORDERED: DIPH/PERTUSS(ACELL)/TETANUS VAC/PF 0.5 ML SYR (>=10YO) IM PRN (17:19)
[2020-11-26] MEDS ORDERED: GLYCERIN/WITCH HAZEL LEAF 1 EACH MED..WIPE TP PRN (17:19)
[2020-11-26] MEDS ORDERED: VARICELLA VACC/PF (1350 UNIT/0.5 ML) 0.5 ML VIAL SUBCUT PRN (17:19)
[2020-11-26] MEDS ORDERED: MAGNESIUM HYDROXIDE SUSP 30 ML UDCUP PO PRN (17:19)
[2020-11-26] MEDS ORDERED: MAG HYDROX/AL HYDROX/SIMETH SUSP 30 ML UDCUP PO PRN (17:19)
[2020-11-26] MEDS ORDERED: DIPHENHYDRAMINE HCL 25 MG CAPSULE PO PRN (17:19)
[2020-11-26] MEDS ORDERED: ACETAMINOPHEN WITH CODEINE #3 TABLET PO PRN (17:19)
[2020-11-26] MEDS ORDERED: ZOLPIDEM TARTRATE 5 MG TABLET PO PRN (17:19)
[2020-11-26] MEDS ORDERED: ACETAMINOPHEN 650 MG SUPP.RECT PR PRN (17:19)
[2020-11-26] MEDS ORDERED: MEASLES,MUMPS&RUBELLA VACC/PF 0.5 ML VIAL SUBCUT PRN (17:19)
[2020-11-26] MEDS ORDERED: MISOPROSTOL 0.2 MG TABLET PR ONE (17:51)
--- NOTE | 2020-11-26 19:02 | Birth Certificate Data ---
Cert Data Datetime Report Generated by CPN: 11/26/2020 19:02 CERTIFICATE DATA Delivery Provider: Lorna Sullivan CNM (11/24/2020 12:51:Lorna Sullivan CNM) 47a. Care: No (11/24/2020 12:51:Starla Burns RN) 47b. Date of First Visit: 07/25/2020 00:00 (11/24/2020 12:51:Starla Burns RN) 47c. Date of Last Visit: 09/14/2020 00:00 (11/24/2020 12:51:Starla Burns RN) 47d. Number of Visits: 2 (11/24/2020 12:51:Starla uBrns RN) 48a. Number of Prev Live Births: 6 (11/24/2020 12:51:Joya Melchor RN) 48b. Now Livin (11/24/2020 12:51:Starla Burns RN) 48c. Live Births Now : 0 (11/24/2020 12:51:QS system process) 48d. Date of Last Live : 04/22/2019 00:00 (11/24/2020 12:51:Joya Melchor RN) 48e. Losses: 4 (11/24/2020 12:51:Joya Melchor RN) RISK FACTORS IN THIS 49a. Diabetes: Yes (11/24/2020 12:51:Starla Burns RN) Type of Diabetes: Gestational Diabetes (11/24/2020 12:51:Joya Melchor RN) 49b. Hypertension: No (11/24/2020 12:51:Starla Burns RN) 49c. Previous Births: 0 (11/24/2020 12:51:Joya Melchor RN) 49d. Stillborns: No (11/24/2020 12:51:Starla Burns RN) 49d. IUGR: No (11/24/2020 12:51:Starla Burns RN) 49e. Infertility Treatment: No (11/24/2020 12:51:Starla Burns RN) 49f. Previous Cesareans: 0 (11/24/2020 12:51:Starla Burns RN) Mother's Height 50b. Height Inches: 65 (11/24/2020 12:58:QS system process) Mother's Weight 51a. Pre- Weight (lbs): 169 (11/24/2020 12:51:Joya Melchor RN) 51b. Weight at Delivery (lbs): 191 (11/26/2020 12:23:QS system process) 52. Dt Last Normal Menses Began: 02/21/2020 00:00 (11/24/2020 12:51:Joya Melchor RN) Infections Present/Treated 53a. Gonorrhea: Yes (11/24/2020 12:51:Mona Guerra RN) Results this Hospital Visit : Negative (11/24/2020 12:51:Mona Guerra RN) 53b. Syphilis: No (11/24/2020 12:51:Starla Burns RN) 53c. Chlamydia: Yes (11/24/2020 12:51:Mona Guerra RN) Results this Hospital Visit: Negative (11/24/2020 12:51:Mona Guerra RN) 53d. Hepatitis B: No (11/24/2020 12:51:Starla Burns RN) Results this Hospital Visit: Negative (11/24/2020 12:51:Starla Burns RN) 53e. Hepatitis C: Negative (11/24/2020 12:51:Starla Burns RN) 53h. Mother Tested for HBsAG: Yes (11/24/2020 12:51:Starla Burns RN) 53i. Date Tested: 07/25/2020 00:00 (11/24/2020 12:51:Starla Burns RN) 53j. Test Result: Negative (11/24/2020 12:51:Starla Burns RN) Obstetric Procedures 54a, b, c. Obstetric Procedures: Ultrasound; NST (11/24/2020 12:51:Mona Guerra RN) Cigarette Smoking Cigarette Smoking: Former Smoker. [id number] (11/24/2020 12:51:Starla Burns RN) 55a. 3 Months Before Preg - Ci (11/24/2020 12:51:Mona Guerra RN) 55a. Packs: 0 (11/24/2020 12:51:Mona Guerra RN) 55b. 1st Trimester of Preg- Ci (11/24/2020 12:51:Starla Burns RN) 55b. Packs: 0 (11/24/2020 12:51:Mona Guerra RN) 55c. 2nd Trimester of Preg- Ci (11/24/2020 12:51:Mona Guerra RN) 55c. Packs: 0 (11/24/2020 12:51:Mona Guerra RN) 55d. 3rd Trimester of Preg- Ci (11/24/2020 12:51:Mona Guerra RN) 55d. Packs: 0 (11/24/2020 12:51:Mona Guerra RN) Onset of Labor 56a. PROM >12 Hrs: 4.20 (11/24/2020 12:51:QS system process) 56b. Precipitous Labor <3 Hrs: 1 (11/24/2020 12:51:QS system process) 56c. Prolonged Labor > 20 Hrs: 1 (11/24/2020 12:51:QS system process) 57a. Induction of Labor: Augmentation (11/24/2020 12:51:Mona Guerra RN) 57a. Induction of Labor: Cytotec @ 1000mg OK (11/26/2020 17:22:Mona Guerra RN) 57c. Non-Vertex Presentation A: Vertex (11/24/2020 12:51:Mona Guerra RN) 57d. Steroids - Lung Mat: None (11/24/2020 12:51:Mona Guerra RN) 57d. Steroids - Lung Mat: Not Applicable (11/24/2020 12:51:Mona Guerra RN) 57g. Moderate/Heavy Meconium: Clear (11/26/2020 13:04:Mona Guerra RN) 57h. Intolerance of Labor: N/A (11/24/2020 12:51:Mona Guerra RN) : N/A (11/24/2020 12:51:Mona Guerra RN) 57i. Epidural/Spinal Anesthesia: Epidural (11/24/2020 12:51:Mona Guerra RN) Method of Delivery 58a. Forceps - Unsuccessful A: N/A (11/24/2020 12:51:Mona Guerra RN) 58b. Vacuum - Unsuccessful A: N/A (11/24/2020 12:51:Mona Guerra RN) 58c. Presentation at 58c. Presentation at - A : Vertex (11/24/2020 12:51:Mona Guerra RN) 58c. Presentation at - A : N/A (11/24/2020 12:51:Mona Guerra RN) 58c. Presentation at - A : Cephalic (11/26/2020 15:44:Mona Guerra RN) Final Route and Method of Del 58d. Baby A Route/Delivery: Vaginal (11/26/2020 17:16:Mona Guerra RN) 58e. Trial of Labor Attempted: No (11/24/2020 12:51:Mona Guerra RN) 58e. Trial of Labor Attempted A: N/A (11/24/2020 12:51:Mona Guerra RN) 58e. Trial of Labor Attempted B: N/A (11/24/2020 12:51:Mona العراقيeDAWSON) Maternal Morbidity 59b. 3rd or 4th Degree Lacs: None (11/24/2020 12:51:Lorna Sullivan CNM) 59b. 3rd or 4th Degree Lacs: N/A (11/24/2020 12:51:Mona Guerra RN) Birthweight Baby A: 4583 (11/24/2020 12:51:Malou GuerraDAWSON) 60a. Pounds : 10 (11/24/2020 12:51:QS system process) 60b. Ounces: 2 (11/24/2020 12:51:QS system process) 61. GA at Delivery Baby A: 39.6 (11/24/2020 12:51:Mona Guerra RN) : Full Term- 39- 40.6 Weeks (11/24/2020 12:51:QS system process) 62a. 5 Minute Baby A: 9 (11/24/2020 12:51:QS system process)
--- NOTE | 2020-11-26 19:03 | Delivery Summary ---
Del Sum A-C Datetime Report Generated by CPN: 11/26/2020 19:03 DELIVERY PERSONNEL DELIVERY PERSONNEL: [id number] Delivery Doctor:: Lorna Sullivan CNM Labor and Delivery Nurse:: Mona Guerra RN Nursery Nurse:: Malou Guerra RN Nursery Nurse:: Almaz Hahn RN Application Release Manager/SHANK TURNER: Rica Mccarty, SUPERVISOR ALUMINUM FABRICATION MATERNAL INFORMATION Delivery Anesthesia: Epidural Medications After Delivery: Pitocin 30 Units in 500ml NS/D5W; Cytotec 1000mcg Per Rectum/Vagina Delivery QBL: 75 Delivery QBL Comment: 75 Maternal Complications: None Provider Comments: SVDVF over intact perineum. Shoulder dystocia less than one minute, relieved by Cash and suprapubic pressure. Shoulder cord noted, delivery of post shoulder and body followed with cord looped across body and around Left leg at the hip. dried and stimulated, then was vigorous. Cord clamped after 2 min, cut per pt sister. Placenta intact with trailing membranes via pacheco. Fundus firmed immediately. Cytotec placed rectally and Pitocin injected into NIKITA d/t history of PPH, parity and macrosomic baby. Mother and infant stable. Perineum inspected, no lacs. LABOR SUMMARY EDC: 11/27/2020 00:00 No. Babies in Womb: 1 Attempted: No Labor Anesthesia: Epidural LABOR INFORMATION Reason for Induction: Not Applicable Onset of Labor: 11/26/2020 15:44 Complete Dilatation: 11/26/2020 17:03 Cervical Ripening Agents: Cytotec @ 1000mg [place] Oxytocin: Augmentation Group B Beta Strep: 1 NO GROUP B STREPTOCOCCUS RECOVERED Antibiotics # of Doses: 0 Name of Antibiotic Given: N/a Steroids Given: None Reason Steroids Not Administered: Not Applicable MEMBRANES Membranes Rupture Method: Artificial Rupture of Membranes: 11/26/2020 13:04 Length of Rupture (hr): 4.20 Amniotic Fluid Color: Clear Amniotic Fluid Amount: Small Amniotic Fluid Odor: Normal STAGES OF LABOR Stage 1 hr: 1 Stage 1 min: 19 Stage 2 hr: 0 Stage 2 min: 13 Stage 3 hr: 0 Stage 3 min: 8 Total Time in Labor hr: 1 Total Time in Labor min: 40 VAGINAL DELIVERY Episiotomy: None Laceration #1: None Laceration Extension #1: N/A Laceration Repair: No Sponge Count Correct: N/A CSECTION DELIVERY Primary Indication: N/A Secondary Indication: N/A CSection Incidence: N/A Labor: N/A Elective: N/A CSection Incision: N/A BABY A INFORMATION Infant Delivery Date/Time: 11/26/2020 17:16 Method of Delivery: Vaginal Born in Route : No : N/A Forceps: N/A Vacuum Extraction: N/A Shoulder Dystocia : Yes SHOULDER DYSTOCIA BABY A Delivery of Head: 11/26/2020 17:16 Time Head to Delivery : 0.0 1st Intervention to Resolve: McRobert's Maneuver 2nd Intervention to Resolve: Suprapubic Pressure PRESENTATION/POSITION BABY A Presentation: Cephalic Cephalic Presentation: Vertex Vertex Position: Left Occipital Anterior Breech Presentation: N/A PLACENTA INFORMATION BABY A Placenta Delivery Time : 11/26/2020 17:24 Placenta Method of Delivery: Spontaneous Placenta Status: Delivered SCORES BABY A Heart Rate 1 min: >100 bpm Resp Effort 1 min: Good Cry Reflex Irritability 1 min: Cough or Sneeze or Pulls Away Muscle Tone 1 min: Active Motion Color 1 min: Blue/Pale Resuscitation Effort 1 min: Tactile Stimulation SCORE 1 MIN: 8 Heart Rate 5 min: >100 bpm Resp Effort 5 min: Good Cry Reflex Irritability 5 min: Cough or Sneeze or Pulls Away Muscle Tone 5 min: Active Motion Color 5 min: Body [place], Extremities Blue Resuscitation Effort 5 min: Tactile Stimulation SCORE 5 MIN: 9 INFORMATION BABY A Gestational Age at Delivery: 39.6 Gestational Status: Full Term- 39- 40.6 Weeks Outcome : Liveborn Condition : Stable Infant Sex: Female IDENTIFICATION BABY A Infant Verification Date/Time: 11/26/2020 18:13 ID Band Number: [id number] Mother's Name Verified: Yes RN Verifying Infant: Marcela Guerra RN Additional Verifying Personnel: Marcela Mcmullen RN WEIGHT/LENGTH BABY A Birthweight (gm): 4583 Infant Weight (lb): 10 Weight (oz): 2 Length (in): 21.00 Length (cm): 53.34 CORD INFORMATION BABY A No. Cord Vessels: 3 Nuchal Cord : N/A Nuchal Cord- Other: Body cord around abdomen and left leg Cord Blood Taken: Yes-For Eval (Mom's Blood Type - or O+) ASSESSMENT BABY A Skin to Skin: No Skin to Skin Time (min): 0 BABY B INFORMATION : N/A SIGNATURES Assignment: Kimberly Nugent MD Signature: with User ID: [email or web address] : with User ID: [email or web address] : I was personally available for consultation and serving as supervising physician for the [facility].
[2020-11-26] MEDS: IBUPROFEN 800 MG TABLET PO SCH (21:27)
[2020-11-26] MEDS: DOCUSATE SODIUM 100 MG CAPSULE PO SCH (21:29)
[2020-11-26] MEDS: FERROUS SULFATE 325 MG TABLET PO SCH (21:30)
[2020-11-26] MEDS: ACETAMINOPHEN WITH CODEINE #3 TABLET PO PRN (23:41)
[2020-11-27] MEDS: IBUPROFEN 800 MG TABLET PO SCH ×3 (05:13→22:13)
[2020-11-27 07:10] LABS: HEMATOCRIT 28.6 % (36.0-47.0); HEMOGLOBIN 9.6 g/dL (12.0-15.5); MEAN CORPUSCULAR HEMOGLOBIN 26.4 pg (27.0-33.4); MEAN CORPUSCULAR HGB CONC 33.6 g/dL (32.0-36.0); MEAN CORPUSCULAR VOLUME 79 fl (80-97); PLATELET COUNT 262 10^3/uL (150-450); RED BLOOD COUNT 3.65 10^6/uL (3.72-5.28); RED CELL DISTRIBUTION WIDTH 15.5 % (11.5-14.0); WHITE BLOOD COUNT 15.4 10^3/uL (4.0-10.5)
[2020-11-27] MEDS: ACETAMINOPHEN WITH CODEINE #3 TABLET PO PRN (07:44)
[2020-11-27] MEDS: DOCUSATE SODIUM 100 MG CAPSULE PO SCH ×2 (09:23→17:44)
[2020-11-27] MEDS: FERROUS SULFATE 325 MG TABLET PO SCH ×2 (09:23→17:44)
[2020-11-27] MEDS: PRENATAL VITAMIN W DHA CAPSULE PO SCH (09:23)
[2020-11-27] MEDS: SENNOSIDES/DOCUSATE 8.6-50 MG 1 EACH TABLET PO SCH (09:23)
--- NOTE | 2020-11-27 11:34 | PDOC PROGRESS REPORT ---
Subjective-OB Progress Note for:: 11/27/20 Subjective: reports bleeding slowing, pain controlled with current meds. denies needs Physical Exam (OB) Vital Signs: Temp Pulse Resp BP Pulse Ox 98.0 F 77 18 120/79 100 11/27/20 07:45 11/27/20 07:24 11/27/20 07:24 11/27/20 07:24 11/27/20 07:24 Intake & Output 11/26/20 11/27/20 11/28/20 06:59 06:59 06:59 Intake Total 120 Output Total 550 Balance -550 120 Weight 87.1 kg - Maternal Morbidity 59. Maternal Morbidity (serious complications experinced by the mother associated with labor and delivery: None of the above - Abdomen Description: Soft Hernia Present: No Fundal Description: Firm, Midline Fundal Height: u/u - u/2 - Abdominal Distension: No distension Tenderness: Nontender - Extremities Lower extremities: Esme's sign - neg Calf: Normal, Nontender Objective-Diagnostic Laboratory: 11/27/20 06:57 11/26/20 11/26/20 11/27/20 12:37 12:37 06:57 WBC 12.0 H 15.4 H RBC 3.78 3.65 L Hgb 9.7 L 9.6 L Hct 29.6 L 28.6 L MCV 78 L 79 L MCH 25.7 L 26.4 L MCHC 32.9 33.6 RDW 16.2 H 15.5 H Plt Count 307 262 Seg Neutrophils % 65.1 Blood Type O POSITIVE Antibody Screen NEGATIVE Assessment and Plan(PN) - Time Spent with Patient Time with patient: Less than 15 minutes Medications reviewed and adjusted accordingly: Yes - Disposition Anticipated Discharge Disposition: Home, Self Care Anticipated Discharge Timeframe: within 24 hours
[2020-11-28] MEDS: IBUPROFEN 800 MG TABLET PO SCH (05:29)
[2020-11-28 08:04] VITALS: BP 124/89
[2020-11-28] MEDS: PRENATAL VITAMIN W DHA CAPSULE PO SCH (10:06)
[2020-11-28] MEDS: SENNOSIDES/DOCUSATE 8.6-50 MG 1 EACH TABLET PO SCH (10:06)
[2020-11-28] MEDS: DOCUSATE SODIUM 100 MG CAPSULE PO SCH (10:06)
[2020-11-28] MEDS: FERROUS SULFATE 325 MG TABLET PO SCH (10:06)
[2020-11-28] MEDS: ACETAMINOPHEN WITH CODEINE #3 TABLET PO PRN (10:10)
--- NOTE | 2020-11-28 10:36 | PDOC DISCHARGE SUMMARY ---
Impression - Admit/DC Date/PCP Admission Date/Primary Care Provider: 11/26/20 12:18 Discharge Date: 11/28/20 - PP Day #2, doing well, no complaints, O+ Rubella Immune, breast and bottlefeeding - Discharge Diagnosis (1) Current smoker Is this a current diagnosis for this admission?: Yes (2) Gestational diabetes mellitus Is this a current diagnosis for this admission?: Yes (3) Normal vaginal delivery Is this a current diagnosis for this admission?: Yes (4) hemorrhage of vagina Is this a current diagnosis for this admission?: Yes - Additional Information Resuscitation Status: Full Code Discharge Diet: As Tolerated, Regular Discharge Activity: Activity As Tolerated, No Lifting Over 10 Pounds, Pelvic Rest Prescriptions: Ferrous Sulfate [Feosol 325 mg Tablet] 325 mg PO DAILY #30 tablet Ibuprofen [Motrin 800 mg Tablet] 800 mg PO Q8 #60 tablet Home Medications: Ferrous Sulfate [Feosol 325 mg Tablet] 325 mg PO DAILY #30 tablet 11/28/20 Ibuprofen [Motrin 800 mg Tablet] 800 mg PO Q8 #60 tablet 11/28/20 Vit/Dha [ Multi + Dha Capsule] 1 cap PO DAILY capsule 11/28/20 HPI Reason(s) for Admission: Onset of Labor Procedures: Ultrasound Complication(s): Hemorrhage-Uterine Atony Hospital Course 59. Maternal Morbidity (serious complications experinced by the mother associated with labor and delivery: None of the above Results Laboratory Results: WBC 15.4 10^3/uL (4.0-10.5) H 11/27/20 06:57 RBC 3.65 10^6/uL (3.72-5.28) L 11/27/20 06:57 Hgb 9.6 g/dL (12.0-15.5) L 11/27/20 06:57 Hct 28.6 % (36.0-47.0) L 11/27/20 06:57 MCV 79 fl (80-97) L 11/27/20 06:57 MCH 26.4 pg (27.0-33.4) L 11/27/20 06:57 MCHC 33.6 g/dL (32.0-36.0) 11/27/20 06:57 RDW 15.5 % (11.5-14.0) H 11/27/20 06:57 Plt Count 262 10^3/uL (150-450) 11/27/20 06:57 Lymph % (Auto) 27.8 % (13-45) 11/26/20 12:37 [place] % (Auto) 5.8 % (3-13) 11/26/20 12:37 Eos % (Auto) 0.8 % (0-6) 11/26/20 12:37 Baso % (Auto) 0.5 % (0-2) 11/26/20 12:37 Absolute Neuts (auto) 7.8 10^3/uL (1.7-8.2) 11/26/20 12:37 Absolute Lymphs (auto) 3.3 10^3/uL (0.5-4.7) 11/26/20 12:37 Absolute Monos (auto) 0.7 10^3/uL (0.1-1.4) 11/26/20 12:37 Absolute Eos (auto) 0.1 10^3/uL (0.0-0.6) 11/26/20 12:37 Absolute Basos (auto) 0.1 10^3/uL (0.0-0.2) 11/26/20 12:37 Seg Neutrophils % 65.1 % (42-78) 11/26/20 12:37 Urine Color JAMAR 11/26/20 08:51 Urine Appearance TURBID 11/26/20 08:51 Urine pH 7.0 (5.0-9.0) 11/26/20 08:51 Ur Specific [place] 1.019 11/26/20 08:51 Urine Protein 100 mg/dL (NEGATIVE) H 11/26/20 08:51 Urine Glucose (UA) NEGATIVE mg/dL (NEGATIVE) 11/26/20 08:51 Urine Ketones NEGATIVE mg/dL (NEGATIVE) 11/26/20 08:51 Urine Blood MODERATE (NEGATIVE) H 11/26/20 08:51 Urine Nitrite NEGATIVE (NEGATIVE) 11/26/20 08:51 Urine Bilirubin NEGATIVE (NEGATIVE) 11/26/20 08:51 Urine Urobilinogen NEGATIVE mg/dL (<2.0) 11/26/20 08:51 Ur Leukocyte Esterase LARGE (NEGATIVE) H 11/26/20 08:51 Urine Ascorbic Acid NEGATIVE (NEGATIVE) 11/26/20 08:51 Membranes Rupture NEGATIVE (NEGATIVE) 11/26/20 09:08 Urine Opiates Screen NEGATIVE 11/26/20 08:51 Urine Methadone Screen NEGATIVE 11/26/20 08:51 Ur Barbiturates Screen NEGATIVE 11/26/20 08:51 Ur Phencyclidine Scrn NEGATIVE 11/26/20 08:51 Ur Amphetamines Screen NEGATIVE 11/26/20 08:51 U Benzodiazepines Scrn NEGATIVE 11/26/20 08:51 Urine Cocaine Screen NEGATIVE 11/26/20 08:51 U Marijuana (THC) Screen NEGATIVE 11/26/20 08:51 RPR NONREACTIVE (NONREACTIVE) 11/26/20 12:37 Blood Type O POSITIVE 11/26/20 12:37 Antibody Screen NEGATIVE 11/26/20 12:37 Plan Health Concerns: iron rich foods Plan of Treatment: d/c home. F/up with [facility] in 4 wks for PP check Time Spent: Less than 30 Minutes
== END 2020-11-28 12:18 | disposition home or self-care (01) | DRG 806 ==
LOC: LC 08:45 → LR 12:18 → 2S 19:31
PROVIDERS: ADMIT Obstetrics & Gynecology; ATTEND Obstetrics & Gynecology
PROC: 10E0XZZ Delivery of Products of Conception, External Approach (ICD-10-PCS; principal; 2020-11-26)
PROC: 10907ZC Drainage of Amniotic Fluid, Therapeutic from Products of Conception, Via Natural or Artificial Opening (ICD-10-PCS; 2020-11-26)
DX: O76 Abnormality in fetal heart rate and rhythm complicating labor and delivery (principal); O72.1 Other immediate postpartum hemorrhage; Z37.0 Single live birth; O24.429 Gestational diabetes mellitus in childbirth, unspecified control; O69.82X0 Labor and delivery complicated by other cord entanglement, without compression, not applicable or unspecified; O99.334 Smoking (tobacco) complicating childbirth; O67.9 Intrapartum hemorrhage, unspecified; O36.63X0 Maternal care for excessive fetal growth, third trimester, not applicable or unspecified; Z3A.39 39 weeks gestation of pregnancy
CPT/HCPCS: 1967; 36415; 80307; 81005; 84112; 85025; 85027; 86592; 86850; 86900; 86901; 94760; J2590; J2795; J3010; J3490